=== PATIENT | female | born 1985 | race Caucasian/White ===

== ENCOUNTER → 2016-09-14 | Outpatient (CLI) | payer OTHER | LOC: FIMAGING 11:42 | PROVIDERS: ATTEND Obstetrics & Gynecology | DX: O36.63X0 Maternal care for excessive fetal growth, third trimester, not applicable or unspecified (principal); Z3A.36 36 weeks gestation of pregnancy ==

== ENCOUNTER 2016-10-04 17:00 | Inpatient (IN) | payer OTHER ==
[2016-10-04] MEDS ORDERED: TERBUTALINE SULFATE 1 MG/ML VIAL IV PRN (18:12)
[2016-10-04] MEDS ORDERED: OLIVE OIL 118 ML BTL MISC PRN (18:12)
[2016-10-04] MEDS ORDERED: OXYTOCIN/RINGERS LACTATE 1,000 ML IV PRN (18:12)
[2016-10-04] MEDS ORDERED: EPSOM SALT 454 GM TP PRN (18:12)
[2016-10-04] MEDS ORDERED: LR 1,000 ML IV PRN (18:12)
[2016-10-04] MEDS ORDERED: CALCIUM CARBONATE 500 MG CHEWABLE TAB PO PRN (19:51)
[2016-10-04] MEDS ORDERED: diphenhydrAMINE 25 MG CAP PO PRN (19:51)
[2016-10-04] MEDS ORDERED: ACETAMINOPHEN 325 MG TAB PO PRN (19:51)
[2016-10-04] MEDS ORDERED: OXYTOCIN/LR *STANDARD DOSE PROTOCOL IV SCH (20:00)
[2016-10-04 20:25] LABS: % IMMATURE GRANULYOCYTES 1.6 % (0.0-1.1); ABSOLUTE IMMATURE GRANULOCYTES 0.19 10^3/uL (0.00-0.10); ADD DIFF? NO; ADD MORPH? NO; ADD SCAN? NO; ATYPICAL LYMPHOCYTE FLAG 10 (0-99); FRAGMENT RBC FLAG 0 (0-99); HEMATOCRIT 36.9 % (38.0-47.0); HEMOGLOBIN 12.6 g/dL (12.6-16.3); LEFT SHIFT FLG 10 (0-99); LIPEMIA HEMOLYSIS FLAG 90 (0-99); MEAN CELL HEMOGLOBIN 30.5 pg (27.9-34.1); MEAN CELL HEMOGLOBIN CONCENTR. 34.1 g/dL (32.4-36.7); MEAN CELL VOLUME 89.3 fL (81.5-99.8); MEAN PLATELET VOLUME 11.5 fL (8.7-11.7); PLATELET CLUMPS FLAG 20 (0-99); PLATELET COUNT 257 10^3/uL (150-400); RED BLOOD CELL COUNT 4.13 10^6/uL (4.18-5.33); RED CELL DISTRIBUTION WIDTH 13.6 % (11.5-15.2)
[2016-10-04] MEDS ORDERED: LIDOCAINE 1% 300 MG/30 ML SDV ONE (20:32)
[2016-10-04] MEDS ORDERED: AMMONIA AROMATIC 1 EACH AMP IH ONE (20:32)
[2016-10-04] MEDS ORDERED: OLIVE OIL 118 ML BTL ONE (20:32)
[2016-10-04] MEDS ORDERED: MISOPROSTOL 200 MCG TAB ONE (20:33)
[2016-10-04] MEDS: ceFAZolin 2 GM/DEXTROSE 100 ML IV SCH (20:43)
[2016-10-05] MEDS: ceFAZolin 2 GM/DEXTROSE 100 ML IV SCH ×3 (05:00→20:18)
--- NOTE | 2016-10-05 08:52 | OBPROG ---
OBG Labor Progress Note Assessment/Plan: Assessment: Pt is a 30 y/o at 39+6 weeks EGA admitted for elective IOL - Plan: 1) Labor: progressing well, CX /-2, douglass bulb removed. Will continue pitocin for induction. 2) status reassuring 3) Pain: No issues at this time 4) GBS + on ancef. 10/05/16 08:51 Subjective: Pt has no complaints. Objective: 10/04/16 19:55 Patient ABO/Rh O POSITIVE 10/04/16 19:55 - SVE Dilation (cm): 6 Effacement (%): 50 Station: -2 [place] Current Contraction Pattern: Regular FHR (bpm): 130 FHR Pattern Variability: Moderate FHR Category: 1 Membranes: AROM Amniotic Fluid Color: Clear - Procedures Non-surgical Procedures: Amniotomy Oxytocin Orders Assessment - Pre-Induction/Augmentation Assessment Gestational Age: 39 week(s) and 5 day(s) ICD10 Worksheet Patient Problems: Problems Problem Status Onset Elective induction of labor planned Acute Labor established Acute Missed Acute - ICD10 Problem Qualifiers (1) Labor established (2) Elective induction of labor planned
--- NOTE | 2016-10-05 12:54 | OBPROG ---
OBG Labor Progress Note Assessment/Plan: Assessment: Pt is a 30 y/o at 39+6 weeks EGA admitted for elective IOL - Plan: 1) Labor: progressing well, CX /-2, will continue pitocin for induction. 2) status reassuring 3) Pain: Using nitrous oxide. 4) GBS + on ancef. 10/05/16 12:53 Subjective: Pt breathing through contractions, using nitrous. Objective: 10/04/16 19:55 Patient ABO/Rh O POSITIVE 10/04/16 19:55 - SVE Dilation (cm): 6 Effacement (%): 80 Station: -2 - Procedures Non-surgical Procedures: Amniotomy Oxytocin Orders Assessment - Pre-Induction/Augmentation Assessment Gestational Age: 39 week(s) and 5 day(s) ICD10 Worksheet Patient Problems: Problems Problem Status Onset Elective induction of labor planned Acute Labor established Acute Missed Acute - ICD10 Problem Qualifiers (1) Labor established (2) Elective induction of labor planned
[2016-10-05] MEDS ORDERED: fentaNYL 2MCG/ML/BUP 0.1% RTU 100 ML BAG EP ONE (13:22)
[2016-10-05] MEDS ORDERED: BUPIVACAINE 0.25% 30 ML SDV ONE (13:23)
[2016-10-05] MEDS ORDERED: PHENYLEPHRINE HCL 100 MCG/ML SYR ONE (13:23)
[2016-10-05] MEDS ORDERED: fentaNYL 100 MCG/2 ML INJ ONE ×2 (13:24→20:10)
--- NOTE | 2016-10-05 14:28 | PREANESOB ---
Obstetric Pre-Anesthesia Info - General Info Proposed Procedure: Labor and delivery with pitocin. : 1 Para: 0 WBD: 40 - Info FHR Baseline (bpm): 130 FHR Pattern: Reassuring - Labor Status Cervical Dilation per last OB SVE: 6 Station per last OB SVE: -2 Rupture of Membranes Time: 08:44 Pitocin: In Use Indications for Labor Analgesia: Induction of Labor, Pain Control Labor Epidural: Proposed Anesthesia ROS: Prior general anesthesia. Allergies/Adverse Reactions: Allergy/AdvReac Type Severity Reaction Status Date / Time amoxicillin Allergy Verified 10/04/16 19:48 Penicillins Allergy Rash Verified 10/04/16 19:56 Sulfa (Sulfonamide Allergy Verified 10/04/16 19:48 Antibiotics) Tetracyclines Allergy Verified 10/04/16 19:48 Home Medications: Medication Instructions Recorded Viral Mag Zinc + D Tablet 1 PO 10/08/15 Fish Oil 1 PO BID 10/08/15 Prenatabs Rx Tablet 3 PO DAILY 10/08/15 Iron Polysac/Iron Heme/FA/B12 1 each PO 10/04/16 [BIFERA RX TABLET] Visit Medications: Generic Name Dose Route Start Last Admin Trade Name Freq PRN Reason Stop Dose Admin Acetaminophen 650 mg 10/04/16 19:51 Tylenol PO 04/02/17 19:50 Q4 PRN Pain, Mild/Fever, Can Take PO Calcium Carbonate 1,000 mg 10/04/16 19:51 Tums PO 04/02/17 19:50 Q4 PRN HEARTBURN Diphenhydramine HCl 25 mg 10/04/16 19:51 Benadryl PO 04/02/17 19:50 HS PRN INSOMNIA Lactated Ringer's 1,000 mls @ 0 mls/hr 10/04/16 18:12 Lr IV 04/02/17 18:11 PRN PRN SEE PROTOCOL CONDITIONS Protocol Per Protocol Oxytocin/Lactated Ringer's 1,000 mls @ 150 mls/hr 10/04/16 18:12 Pitocin 20 Units/Lr (Premix) IV PRN PRN Post- bleeding Oxytocin/Lactated Ringer's 500 mls @ 0 mls/hr 10/04/16 20:00 10/05/16 05:04 Pitocin 30 Units/Lr (Premix) IV 04/02/17 19:59 500 mls CONT SABRA Administration Protocol Per Protocol Cefazolin Sodium/Dextrose 100 mls @ 200 mls/hr 10/04/16 20:00 10/05/16 12:57 Ancef 2 Gm (Premix) IV 11/03/16 19:59 100 mls Q8H SABRA Administration Ibuprofen 600 mg 10/04/16 18:12 Motrin PO 04/02/17 18:11 Q6HRS PRN post , inflammation Magnesium Sulfate 454 gm 10/04/16 18:12 Epsom Salt TP 04/02/17 18:11 Q1H PRN perineal discomfort [place] Oil 118 ml 10/04/16 18:12 Sweet Oil MISC 04/02/17 18:11 ONCE PRN preneal massage Terbutaline Sulfate 0.25 mg 10/04/16 18:12 Brethine IV 04/02/17 18:11 ONCE PRN Tachysystole Discontinued Medications Generic Name Dose Route Start Last Admin Trade Name Freq PRN Reason Stop Dose Admin Ammonia (Aromatic Spirit) Confirm 10/04/16 20:32 Ammonia Aromatic Administered 10/04/16 20:33 Dose 1 each IH .STK-MED ONE Bupivacaine HCl Confirm 10/05/16 13:23 Sensorcaine 0.25% Sdv Administered 10/05/16 13:24 Dose 30 ml .ROUTE .STK-MED ONE Fentanyl Confirm 10/05/16 13:24 Sublimaze Administered 10/05/16 13:25 Dose 100 mcg .ROUTE .STK-MED ONE Fentanyl/Bupivacaine HCl Confirm 10/05/16 13:22 Fentanyl/Bupivacaine/Ns 2 Mcg/Ml 0.1% (Premix Administered 10/05/16 13:23 Dose 100 ml EP .STK-MED ONE Lidocaine HCl Confirm 10/04/16 20:32 Lidocaine Hcl 1% Administered 10/04/16 20:33 Dose 300 mg .ROUTE .STK-MED ONE Misoprostol Confirm 10/04/16 20:33 Cytotec Administered 10/04/16 20:34 Dose 1,000 mcg .ROUTE .STK-MED ONE [place] Oil Confirm 10/04/16 20:32 Sweet Oil Administered 10/04/16 20:33 Dose 118 ml .ROUTE .STK-MED ONE Phenylephrine HCl Confirm 10/05/16 13:23 Neosynephrine Administered 10/05/16 13:24 Dose 1,000 mcg .ROUTE .STK-MED ONE - Anesthesia History Response to Local Anesthetics: Normal Anesthesia & Operative History: No Prior Problems Family Anesthesia History: Negative - Social History Substance Use/Abuse: Denies - Focused Exam Blood Pressure: 126/79 Heart Rate: 77 Respiratory Rate: 18 Height/Weight (Nursing): Height 160.02 cm Weight 77.111 kg Airway: No abnormalities Physical Exam: Within normal limits. ASA Status: II Labs: 10/04/16 19:55 Patient ABO/Rh O POSITIVE 10/04/16 19:55 - Plan Anesthetic Plan: CSE Consent Signed and on Chart: Yes Patient/Guardian Understands and Agrees to Plan: Yes Urgent/Emergent Case: Angela chou completed preop but documented later for safe timely pt care
[2016-10-05] MEDS ORDERED: PHENYLEPHRINE HCL 100 MCG/ML SYR IVP PRN ×2 (14:29→21:34)
[2016-10-05] MEDS ORDERED: ONDANSETRON 4 MG/2 ML VIAL IVP PRN ×3 (14:29→21:34)
--- NOTE | 2016-10-05 14:29 | POSTANESTH ---
Post Anesthetic Evaluation Cardiovascular Status: Normal, Stable Respiratory Status: Normal, Stable, Similar to Pre-op Cond. Level of Consciousness/Mental Status: Can Participate in Eval, Alert and Oriented Pain Control: Adequate, Prn Tx Ordered Nausea/Vomiting Control: Adequate, Prn Tx Ordered Complications Possibly Related to Anesthesia: None Noted
[2016-10-05] MEDS ORDERED: LR 500 ML IV SCH (14:30)
[2016-10-05] MEDS ORDERED: fentaNYL 2MCG/ML/BUP 0.1% RTU 100 ML EP SCH (14:30)
--- NOTE | 2016-10-05 17:58 | OBPROG ---
OBG Labor Progress Note Assessment/Plan: Assessment: Pt is a 30 y/o at 39+6 weeks EGA admitted for elective IOL - Plan: 1) Labor: no significant change in dilation, but change in effacement noted c/w transition into active labor, will continue pitocin for induction. 2) status reassuring 3) Pain: STACY working well 4) GBS + on ancef. 10/05/16 15:35 Subjective: Pt more comfortable with STACY. Objective: 10/04/16 19:55 Patient ABO/Rh O POSITIVE 10/04/16 19:55 Temp Pulse Resp BP Pulse Ox 77 18 126/79 H 10/05/16 14:29 10/05/16 14:29 10/05/16 14:29 - SVE Dilation (cm): 6 Effacement (%): 80 Station: -2 [place] Current Contraction Pattern: Regular FHR (bpm): 125 FHR Pattern Variability: Moderate FHR Category: 1 Membranes: AROM Amniotic Fluid Color: Clear - Procedures Non-surgical Procedures: Amniotomy Oxytocin Orders Assessment - Pre-Induction/Augmentation Assessment Gestational Age: 39 week(s) and 5 day(s) ICD10 Worksheet Patient Problems: Problems Problem Status Onset Elective induction of labor planned Acute Labor established Acute Missed Acute - ICD10 Problem Qualifiers (1) Labor established (2) Elective induction of labor planned
--- NOTE | 2016-10-05 18:01 | OBPROG ---
OBG Labor Progress Note Assessment/Plan: Assessment: Pt is a 30 y/o at 39+6 weeks EGA admitted for elective IOL - Plan: 1) Labor: Cervical change to 8cm, MVU's just became adequate, will continue pitocin for induction. 2) status reassuring; hx of a few late decels over the last 2 hours, but none currently and great moderate variability and accels present 3) Pain: STACY working well 4) GBS + on ancef. 10/05/16 18:00 Subjective: Pt feeling more pressure. Objective: 10/04/16 19:55 Patient ABO/Rh O POSITIVE 10/04/16 19:55 Temp Pulse Resp BP Pulse Ox 77 18 126/79 H 10/05/16 14:29 10/05/16 14:29 10/05/16 14:29 - SVE Dilation (cm): 8 Effacement (%): 90 Station: -1 [place] Current Contraction Pattern: Regular FHR (bpm): 125 FHR Pattern Variability: Moderate FHR Category: 1 Membranes: AROM Amniotic Fluid Color: Clear - Procedures Non-surgical Procedures: Amniotomy Oxytocin Orders Assessment - Pre-Induction/Augmentation Assessment Gestational Age: 39 week(s) and 5 day(s) ICD10 Worksheet Patient Problems: Problems Problem Status Onset Elective induction of labor planned Acute Labor established Acute Missed Acute - ICD10 Problem Qualifiers (1) Labor established (2) Elective induction of labor planned
[2016-10-05] MEDS ORDERED: LR 500 ML IV ONE (20:07)
[2016-10-05] MEDS ORDERED: LIDO/EPI 2% **for epidural** 20 ML SDV ONE (20:09)
[2016-10-05] MEDS ORDERED: LIDOCAINE 2% 5 ML SDV ONE ×2 (20:09→20:10)
[2016-10-05] MEDS ORDERED: OXYTOCIN 100 UNITS/10 ML VIAL ONE (20:09)
[2016-10-05] MEDS ORDERED: PHENYLEPHRINE 10 MG/ML SDV ONE (20:10)
[2016-10-05] MEDS ORDERED: morphINE PF 10 MG/10 ML INJ ONE (20:12)
--- NOTE | 2016-10-05 20:15 | OBPROG ---
OBG Labor Progress Note Assessment/Plan: Assessment: Pt is a 30 y/o at 39+6 weeks EGA admitted for elective IOL with arrest of dilation Plan: 1) Labor: No cervical change and no descent noted over last 2 hours despite adequate contractions, although a somewhat dysfunctional pattern despite pitocin up to 30 mIU/min of pitocin. 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 Discussed my recommendation for a C/S, and after review of all r/b/i/a , she agrees to proceed. Risk reviewed include risks of infection, bleeding, blood transfusion, damage to surrounding structures and organs, blood transfusion and hysterectomy. 2) status reassuring 3) Pain: STACY working well 4) GBS + on ancef. 10/05/16 20:15 Subjective: Pt comfortable. No complaints. Objective: 10/04/16 19:55 Patient ABO/Rh O POSITIVE 10/04/16 19:55 Temp Pulse Resp BP Pulse Ox 77 18 126/79 H 10/05/16 14:29 10/05/16 14:29 10/05/16 14:29 - SVE Dilation (cm): 8 Effacement (%): 90 Station: -1 [place] Current Contraction Pattern: Regular FHR (bpm): 125 FHR Pattern Variability: Moderate FHR Category: 1 Membranes: AROM Amniotic Fluid Color: Clear - Procedures Non-surgical Procedures: Amniotomy Oxytocin Orders Assessment - Pre-Induction/Augmentation Assessment Gestational Age: 39 week(s) and 5 day(s) ICD10 Worksheet Patient Problems: Problems Problem Status Onset Elective induction of labor planned Acute Labor established Acute Missed Acute - ICD10 Problem Qualifiers (1) Labor established (2) Elective induction of labor planned
[2016-10-05] MEDS ORDERED: PROMETHAZINE HCL 25 MG/ML INJ IVP PRN (20:21)
[2016-10-05] MEDS ORDERED: SIMETHICONE 80 MG TAB CHEW PO PRN (20:21)
--- NOTE | 2016-10-05 20:21 | OBDEL ---
Info Type: Primary GBS+: Yes (Ancef) Antibiotic Used for + GBS: Ampicillin (ANCEF used, not ampicillin, but this was not a choice to pick. PCN allergy.) Number of Antibiotic Doses Given: 4 Indications for Delivery: Elective Vaginal Delivery - Labor and Delivery Rupture of Membranes Date: 10/05/16 Rupture of Membranes Time: 08:44 Non-surgical Procedures: Amniotomy Operative Report - Delivery Pre-op Diagnoses: 1) IUP at 39+6 weeks, 2) Arrest of dilation Post-op Diagnoses: alexei Nulliparous Prior to Delivery: Yes Presentation at Delivery: Vertex Procedure: Unscheduled, Low Transverse Surgeon: Genna Herrera [employer] Supervisor: RADHAMES LEE Anesthesiologist: Keenan Saavedra L[facility]Monster Analgesia/Anesthesia Type: Epidural Complications: None Findings: Baby in direct ROT position. IV Fluid (ml): 1,800 EBL: 800 cc Drains: Other (Specify) (douglass) Data [place]ario Delivery Date: 10/05/16 Delivery Time: 22:48 COLETTE: 10/06/16 Gestational Age: 39 week(s) and 6 day(s) Sex of Infant: Female [place] Weight (gm): 3670 g Score (1 Min): 8 Score (5 Min): 9 ICD10 Worksheet Patient Problems: Problems Problem Status Onset Arrest of dilation, delivered, current hospitalization Acute delivery delivered Acute Elective induction of labor planned Acute Labor established Acute Missed Acute - ICD10 Problem Qualifiers (1) Labor established (2) Elective induction of labor planned (3) Arrest of dilation, delivered, current hospitalization (4) delivery delivered
[2016-10-05] MEDS ORDERED: LR 1,000 ML IV SCH (20:30)
[2016-10-05] MEDS ORDERED: ONDANSETRON 4 MG/2 ML VIAL ONE (21:16)
[2016-10-05] MEDS ORDERED: HYDROCODONE/APAP 5/325 TAB PO PRN (21:34)
[2016-10-05] MEDS ORDERED: MEPERIDINE 25 MG/ML SYR IVP PRN (21:34)
[2016-10-05] MEDS ORDERED: NALOXONE HCL 0.4 MG/ML INJ IVP PRN ×2 (21:34)
[2016-10-05] MEDS ORDERED: HYDROmorphONE/DILAUDID 1 MG/ML SYR IVP PRN (21:34)
--- NOTE | 2016-10-05 21:38 | POSTANESTH ---
Post Anesthetic Evaluation Cardiovascular Status: Normal, Stable Respiratory Status: Normal, Stable Level of Consciousness/Mental Status: Can Participate in Eval Pain Control: Adequate, Prn Tx Ordered Nausea/Vomiting Control: Adequate, Prn Tx Ordered Complications Possibly Related to Anesthesia: None Noted
--- NOTE | 2016-10-05 22:30 | GOP ---
[f rep st] OPERATIVE REPORT DATE OF OPERATION: 10/05/2016 SURGEON: Genna Herrera MD ARABIC TRANSLATOR: Elaine Choudhury RN. ANESTHESIA: Epidural. PREOPERATIVE DIAGNOSIS: 1. Intrauterine at 39 weeks and 6 days estimated gestational age. 2. Elective induction of labor. 3. Arrest of dilation. POSTOPERATIVE DIAGNOSIS: 1. Intrauterine at 39 weeks and 6 days estimated gestational age. 2. Elective induction of labor. 3. Arrest of dilation. 4. 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 PROCEDURE PERFORMED: Primary low-transverse delivery. FINDINGS: 1. Delivered a female infant, weighing 3670 g, with Apgars of 8 and 9. 1. Baby was in the left occiput transverse position. 2. SPECIMENS: None. ESTIMATED BLOOD LOSS: 800 cc. INDICATIONS: Patient is a 30-year-old 1, para 0 female, who desired elective induction of l abor at term. She was induced with a Robledo bulb and IV Pitocin. She progressed to 8 cm dilation, 9 0% effaced, and -1 station. 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 She was counseled and agreed to proceed with a section. DESCRIPTION OF PROCEDURE: The patient was taken to the operating room, where epidural anesthesia wa s found to be adequate. Patient was prepared and draped in normal sterile fashion in dorsal supine position with a left tilt. Ancef 2 g IV was administered immediately prior to skin incision. Of no te, she had been getting Ancef during labor for her GBS-positive status with a penicillin allergy. After confirmation of adequate anesthesia, a low-transverse skin incision was made using Pfannenstie l technique. The incision was carried down to the level of the fascia using a scalpel and Bovie for hemostasis. The fascia was incised in the midline and extended laterally bilaterally with the Wilkinson scissors. The fascia was dissected off the rectus muscles superiorly and inferiorly using the Bovi e. The peritoneal cavity was entered bluntly and extended superiorly and inferiorly. The bladder b lade was placed. An incision was made in the vesicouterine peritoneum and extended laterally bilate rally. The bladder was dissected away from the lower uterine segment with digital dissection. A low transverse uterine incision was made and extended digitally. The baby was delivered atraumati ángela in the vertex presentation and noted to be in the right occiput transverse position. The baby was delivered with a spontaneous cry noted. Delayed cord clamping was performed for 1 minute with the nurse practitioner in attendance. The baby had excellent spontaneous cries multiple ti mes during this time. The cord was then doubly clamped and cut. The baby was then taken to the [facility] with the nurse practitioner. Cord blood was obtained. The placenta was then delivered with manual extraction after uterine massage was not successful. The uterus was then exteriorized on the maternal abdomen and wiped with dry lap sponges to remove all residual membranes. The uterin e incision was then closed with a running lock stitch of 0 Monocryl. A second stitch was placed for imbrication. The incision was hemostatic after the serosal edge was cauterized with the Bovie. Th e uterine tone was excellent after giving double-strength Pitocin IV. The posterior cul-de-sac was then irrigated with copious amounts of normal saline and noted to be clear. The uterus was placed b ack in maternal abdomen, and the gutters were wiped with moist lap sponges bilaterally. The uterine incision was reexamined and hemostasis was assured. The rectus muscle surfaces and fascial surface s were examined closely and hemostasis was obtained with use of the Bovie. The fascia was then clos ed with a running nonlocked stitch of #1 PDS. The subcutaneous tissue was irrigated with copious am ounts of normal saline and hemostasis was visualized. The subcutaneous tissue was reapproximated wi th interrupted stitches of 2-0 Vicryl. Skin was closed with a subcuticular stitch of 4-0 Monocryl. Of note, after closure of the fascia on examination of the incision, there was a very small 2 mm def ect in the skin inferior to the incision on the patient's right side, which appeared to be a very sm all burn from the Bovie. It was not clear when this had occurred. It did not seem to go through th e dermis completely, so no additional suture was placed. Steri-Strips and a bandage dressing were p laced. A vaginal Crede exam was performed and all blood and clot removed from the vaginal vault. The uteri ne tone was excellent. All sponge, lap, and needle counts correct x2. The patient was transferred to the PACU in stable and good condition. COMPLICATIONS: None. DRAINS: Robledo to gravity. IV FLUIDS: 1800 cc. URINE OUTPUT: 150 cc. /[id number]/MODL
[2016-10-05] MEDS: KETOROLAC 30 MG/1 ML SDV IVP PRN (22:44)
[2016-10-06] MEDS: KETOROLAC 30 MG/1 ML SDV IVP PRN ×3 (04:36→17:48)
[2016-10-06 05:12] LABS: % IMMATURE GRANULYOCYTES 0.8 % (0.0-1.1); ABSOLUTE IMMATURE GRANULOCYTES 0.11 10^3/uL (0.00-0.10); ADD DIFF? NO; ADD MORPH? NO; ADD SCAN? NO; ATYPICAL LYMPHOCYTE FLAG 0 (0-99); FRAGMENT RBC FLAG 10 (0-99); HEMATOCRIT 31.6 % (38.0-47.0); HEMOGLOBIN 10.8 g/dL (12.6-16.3); LEFT SHIFT FLG 10 (0-99); LIPEMIA HEMOLYSIS FLAG 90 (0-99); MEAN CELL HEMOGLOBIN 30.6 pg (27.9-34.1); MEAN CELL HEMOGLOBIN CONCENTR. 34.2 g/dL (32.4-36.7); MEAN CELL VOLUME 89.5 fL (81.5-99.8); MEAN PLATELET VOLUME 11.3 fL (8.7-11.7); PLATELET CLUMPS FLAG 20 (0-99); PLATELET COUNT 191 10^3/uL (150-400); RED BLOOD CELL COUNT 3.53 10^6/uL (4.18-5.33); RED CELL DISTRIBUTION WIDTH 13.2 % (11.5-15.2)
[2016-10-06] MEDS: ceFAZolin 2 GM/DEXTROSE 100 ML IV SCH (05:20)
--- NOTE | 2016-10-06 07:54 | OBPP ---
Progress Note Assessment/Plan: Assessment: 30 y.o. s/p primary C/S for failure to progress/ failure to descend. Recovering well with good pain control. . Plan: Routine / post-op care. D/C plexi-pulse stocking, douglass, abdominal bandage and IV. Encourage ambulation. fitness consultant. 10/06/16 07:51 Subjective: Reports feeling well with good pain control and minimal vaginal bleeding. Incision with bandage appears CDI, no bleeding or drainage noted. . Eating and drinking well without n/v. Appropriate mood with good support system. Objective: 10/06/16 04:45 Patient ABO/Rh O POSITIVE 10/04/16 19:55 Temp Pulse Resp BP Pulse Ox 36.6 C 64 15 96/60 L 91 L 10/06/16 02:45 10/06/16 04:45 10/06/16 02:45 10/06/16 02:45 10/06/16 04:45 Uterine Position/Fundal Height: Umbilicus -1 Uterine Tone: Firm Physical Exam - Physical Exam General Appearance: WD/WN, alert EENT: normal ENT inspection Neck: non-tender, full range of motion, normal inspection Respiratory: lungs clear, normal breath sounds Cardiac/Chest: regular rate, rhythm Abdomen: non-tender, soft Extremities: non-tender, normal inspection Back: Normal inspection Skin: normal color, warm/dry Neuro/Psych: alert, normal mood/affect, oriented x 3
[2016-10-06] MEDS: DOCUSATE SODIUM 100 MG CAP PO PRN ×2 (08:00→20:44)
[2016-10-06] MEDS: FERROUS SULFATE 325 MG TAB PO SCH (11:19)
[2016-10-06] MEDS: HYDROCODONE/APAP 5/325 TAB PO PRN ×2 (14:40→20:44)
[2016-10-06] MEDS: IBUPROFEN 600 MG TAB PO PRN (23:39)
[2016-10-07] MEDS: HYDROCODONE/APAP 5/325 TAB PO PRN ×4 (02:55→19:40)
[2016-10-07] MEDS: IBUPROFEN 600 MG TAB PO PRN ×3 (05:50→17:46)
[2016-10-07] MEDS: DOCUSATE SODIUM 100 MG CAP PO PRN ×2 (10:42→19:39)
[2016-10-07] MEDS: FERROUS SULFATE 325 MG TAB PO SCH (10:42)
--- NOTE | 2016-10-07 18:24 | SOAPPROG ---
SOAP Progress Note Assessment/Plan: Assessment: 30 o s/p ltcs, pod 2, for arrest of dilation, doing well. Plan: 10/07/16 18:23 Routine postop care. Rh +, rubella immune Home tomorrow. Subjective: 30 yo s/p ltcs, pod 2, for arrest of dilation, doing well. Objective: Vital Signs Temp Pulse Resp BP Pulse Ox 36.2 C 75 18 94/59 L 95 10/07/16 08:00 10/07/16 08:00 10/07/16 08:00 10/07/16 08:00 10/07/16 08:00 Laboratory Results 10/06/16 04:45 10/06/16 10/07/16 10/08/16 05:59 05:59 05:59 Intake Total 5313 1000 Output Total 4175 3200 Balance 1138 -2200 Physical Exam - Physical Exam General Appearance: no apparent distress Respiratory: lungs clear Cardiac/Chest: regular rate, rhythm Abdomen: non-tender Skin: warm/dry Extremities: non-tender Neuro/Psych: oriented x 3 ICD10 Worksheet Patient Problems: Problems Problem Status Onset Arrest of dilation, delivered, current hospitalization Acute delivery delivered Acute Elective induction of labor planned Acute Labor established Acute Missed Acute
[2016-10-07] MEDS ORDERED: MAGNESIUM HYDROXIDE 30 ML UDCUP PO PRN (20:03)
[2016-10-07] MEDS ORDERED: LACTULOSE 20 GM/30 ML UDCUP PO PRN (20:03)
[2016-10-07] MEDS ORDERED: BISACODYL 10 MG SUPP PR PRN (20:03)
[2016-10-07] MEDS ORDERED: POLYETHYLENE GLYCOL 3350 17 GM PKT PO PRN (20:03)
[2016-10-07] MEDS: SENNOSIDES/DOCUSATE SODIUM TAB PO SCH (20:19)
[2016-10-07 22:05] VITALS: RESP 17; O2SAT 96
[2016-10-08] MEDS: HYDROCODONE/APAP 5/325 TAB PO PRN ×2 (05:07→13:54)
[2016-10-08] MEDS: IBUPROFEN 600 MG TAB PO PRN ×3 (06:09→11:54)
[2016-10-08] MEDS: FERROUS SULFATE 325 MG TAB PO SCH (08:54)
[2016-10-08] MEDS: SENNOSIDES/DOCUSATE SODIUM TAB PO SCH (08:55)
[2016-10-08 09:36] VITALS: BP 113/76; PULSE 74; TEMP 97.1
--- NOTE | 2016-10-08 10:50 | OBPP ---
Progress Note Assessment/Plan: Assessment: 30 o s/p ltcs, pod 3, for arrest of dilation, doing well. Plan: Discharge home Rh +, rubella immune F/U in 2 weeks or sooner prn Bleeding/pain/fever precautions 10/08/16 10:49 Subjective: Pt feeling well, ambulating, voiding spontaneously, tolerating regular diet, lochia diminishing and breast feeding progressing. Objective: 10/06/16 04:45 Patient ABO/Rh O POSITIVE 10/04/16 19:55 Temp Pulse Resp BP Pulse Ox 36.2 C 74 17 113/76 96 10/08/16 09:15 10/08/16 09:15 10/08/16 09:15 10/08/16 09:15 10/08/16 09:15 Uterine Position/Fundal Height: Umbilicus -1 Uterine Tone: Firm Physical Exam - Physical Exam General Appearance: WD/WN, alert, no apparent distress Respiratory: lungs clear Cardiac/Chest: regular rate, rhythm Abdomen: normal bowel sounds, soft, incision (c/d/i)
--- NOTE | 2016-10-08 10:53 | OBGCSDC ---
General Delivery Information - General Info : 1 Para: 1 Delivery Physician/CNM: Genna Herrera [place] Guide: RADHAMES LEE Admission Date: 10/04/16 Labs: Patient ABO/Rh O POSITIVE 10/04/16 19:55 Hct 31.6 % (38.0-47.0) L 10/06/16 04:45 Vaginal - Diagnosis Presentation at Delivery: Vertex - Operations/Procedures Non-surgical Procedures: Amniotomy L&D Analgesia/Anesthesia Type: Epidural, Nitrous - Delivery Number of Prior Sections: 0 Indications for Current Section: Arrest of Dilation Type: Primary Non-surgical Procedures: Amniotomy Surgical Procedures: Unscheduled, Low Transverse Intra-op Complications: None EBL: 800 cc L&D Analgesia/Anesthesia Type: Epidural, Nitrous - Hospital Course Antepartum: Uncomplicated Intrapartum: Uncomplicated, arrest of dilation. : Uncomplicated Data [place] Delivery Date: 10/05/16 Delivery Time: 20:49 COLETTE: 10/06/16 Gestational Age: 40 week(s) and 2 day(s) Sex of Infant: Female [place] Weight (gm): 3670 g Score (1 Min): 8 Score (5 Min): 9 Discharge Information - Discharge Information Discharge Medications: Hydrocodone, Ibuprofen Condition: Good Instruction/Follow Up: Two Weeks, Four Weeks, Six Weeks Discharge Physician/CNM: Genna Herrera
== END 2016-10-08 14:00 | disposition home or self-care (01) | DRG 766 ==
LOC: FLD 17:47 → FOB 10-05 23:43
PROVIDERS: ADMIT Obstetrics & Gynecology; ATTEND Obstetrics & Gynecology
PROC: 3E033VJ Introduction of Other Hormone into Peripheral Vein, Percutaneous Approach (ICD-10-PCS; principal; 2016-10-05)
PROC: 10D00Z1 Extraction of Products of Conception, Low, Open Approach (ICD-10-PCS; principal; 2016-10-05)
PROC: 0U7C7ZZ Dilation of Cervix, Via Natural or Artificial Opening (ICD-10-PCS; principal; 2016-10-05)
DX: O32.4XX0 Maternal care for high head at term, not applicable or unspecified (principal); O32.2XX0 Maternal care for transverse and oblique lie, not applicable or unspecified; O65.3 Obstructed labor due to pelvic outlet and mid-cavity contraction; O99.820 Streptococcus B carrier state complicating pregnancy; Z3A.40 40 weeks gestation of pregnancy; Z37.0 Single live birth
CPT/HCPCS: J0690; J1885; J2274; J2370; J2405; J2590; J3010

== ENCOUNTER → 2018-06-24 | Outpatient (CLI) | payer OTHER ==
[~2018-06-24] MED LIST: IOPAMIDOL (ISOVUE 370) 100 ML BTL IV ONE
== END ==
LOC: FIMAGING 09:05
PROVIDERS: ATTEND Obstetrics & Gynecology
DX: Z31.41 Encounter for fertility testing (principal)
CPT/HCPCS: Q9967